=== PATIENT | male | born 1995 | race African-American/Black ===

== ENCOUNTER 2021-09-16 11:19 | Emergency (ER) | payer OTHER, SELFPAY ==
[2021-09-16 11:42] VITALS: BP 138/72; PULSE 76; RESP 18; TEMP 36.8; O2SAT 100
--- NOTE | 2021-09-16 12:12 | ED.EYEPROB ---
HPI - Eye Problem General Chief complaint: Eye Problems Stated complaint: eye pain Time Seen by Provider: 09/16/21 11:49 Source: patient Mode of arrival: ambulatory Limitations: no limitations History of Present Illness HPI Narrative: This is a 26-year-old male that presents to the emergency department for left eye irritation ongoing since yesterday. Reports he woke up and felt like there was a foreign body in his eye. He has had redness, tearing and discomfort. No injuries to the eye. Denies fever, abnormal drainage, or visual changes. Related Data Allergies Allergy/AdvReac Type Severity Reaction Status Date / Time No Known Allergies Allergy Verified 09/16/21 12:13 Review of Systems Review of Systems: CONSTITUTIONAL: Denies fever EYES: Reports redness. Denies visual changes, or discharge. All systems reviewed & are unremarkable except as noted in HPI and below PMFSH Past Medical History Medical History (Updated 09/16/21 @ 12:17 by Deborah Serrato PA-C) No active medical problems Social History Social History (Updated 09/16/21 @ 12:13 by Deborah Serrato PA-C) Smoking status: Never smoker Exam Narrative: GENERAL: Well-appearing, well-nourished, and in no acute distress. HEAD: Normocephalic, atraumatic. EYES: PERRLA and EOMI. Eyelid everted, no foreign bodies noted. Small corneal abrasion present in the left eye with positive fluorescein stain uptake. Eye pressure on the right 14. On the left 13. Visual acuity on the right 20/25, 20/30 on the left EXTREMITIES: Normal range of motion. No edema. SKIN: Warm, dry, no rash. NEURO: No focal deficits. Alert and oriented x3. PSYCH: Normal mood and affect Course Vital Signs Vital signs: Vital Signs Temperature 98.2 F 09/16/21 11:42 Pulse Rate 76 09/16/21 11:42 Respiratory Rate 18 09/16/21 11:42 Blood Pressure 138/72 09/16/21 11:42 Pulse Oximetry 100 09/16/21 11:42 Oxygen Delivery Room Air 09/16/21 11:42 Temperature 98.2 F 09/16/21 11:42 Pulse Rate 76 09/16/21 11:42 Respiratory Rate 18 09/16/21 11:42 Blood Pressure 138/72 09/16/21 11:42 Pulse Oximetry 100 09/16/21 11:42 Oxygen Delivery Room Air 09/16/21 11:42 MDM - Eye Problem MDM Narrative Medical decision making narrative: Patient presents to the emergency department for feelings of foreign body in the eye. No recent injury or trauma. Conjunctival injection and tearing noted to the eye. There is a very small corneal abrasion noted. Visual acuity is normal. Eye pressures are also normal. Instructed on continued care of corneal abrasion. Will be started on ophthalmic antibiotic ointment. He is to follow-up with an locomotive operator helper. He was given warnings to return to the ER Critical Care Time Critical Care Time Critical Care Time: No Discharge Plan Discharge Clinical Impression: Corneal abrasion Qualifiers: Encounter type: initial encounter Laterality: left Qualified Code(s): S05.02XA - Injury of conjunctiva and corneal abrasion without foreign body, left eye, initial encounter Patient Disposition: Home, Self-Care Condition: Stable Instructions: Antibiotic Form, Corneal Abrasion (ED) Additional Instructions: Return to the emergency department if you experience fever, redness and swelling around your eye, visual changes, or any other symptoms that are concerning to you Instill 1 cm ribbon into the left eye 4 times daily for the next 5 days Follow-up with an locomotive operator helper. [facility] if needed Follow-up/Referrals: UNKNOWN,DOCTOR [Primary Care Provider] -
[2021-09-16] MEDS: ERYTHROMYCIN OPHTH OINTMENT 1 GM TUBE 1 APPLIC LEFT EYE (12:25)
== END 2021-09-16 12:35 | disposition home or self-care (01) ==
PROVIDERS: Emergency Provider Emergency Medicine
DX: S05.02XA Injury of conjunctiva and corneal abrasion without foreign body, left eye, initial encounter (principal); X58.XXXA Exposure to other specified factors, initial encounter
CPT/HCPCS: 99283; A9270

== ENCOUNTER 2022-05-31 19:45 | Emergency (ER) | payer OTHER, SELFPAY ==
[2022-05-31 19:48] VITALS: BP 114/64; PULSE 64; RESP 16; TEMP 37.1; O2SAT 100
[2022-05-31 19:57] LABS: Basophils Percent Auto 0.4 % (0.2-1.2); Eosinophils Absolute Auto 0.4 K/mm3 (0-0.3); Eosinophils Percent Auto 3.9 % (0-4.4); Hematocrit 40.6 % (42.0-52.0); Hemoglobin 13.6 g/dL (14.0-18.0); Immature Granulocyte Absolute 0.04 K/mm3 (0.00-0.031); Immature Granulocyte Percent A 0.4 % (0-0.5); Lymphocytes Absolute Auto 2.24 K/mm3 (0.9-3.2); Lymphocytes Percent Auto 21.2 % (18.3-44.2); Mean Corpuscular HGB Conc 33.5 g/dl (32-36); Mean Corpuscular Hemoglobin 33.1 pg (26-34); Mean Corpuscular Volume 98.8 fl (80-100); Mean Platelet Volume 9.5 fl (7.4-10.4); Monocytes Absolute Auto 0.7 K/mm3 (0.1-0.6); Monocytes Percent Auto 6.3 % (2.6-8.5); Neutrophils Absolute Auto 7.2 K/mm3 (1.3-6.7); Neutrophils Percent Auto 67.8 % (45.5-73.1); Platelet Count Result 244 k/mm3 (150-375); Red Blood Count 4.11 M/mm3 (4.6-6.20); White Blood Count 10.6 K/mm3 (4.5-10.0)
[2022-05-31 20:06] LABS: Alanine Aminotransferase 18 U/L (6-50); Albumin Level 4.2 g/dL (3.5-5.1); Alkaline Phosphatase 84 U/L (38-126); Anion Gap 5 mmol/L (8-16); Aspartate Amino Transferase 27 U/L (17-59); Bilirubin,Total 0.4 mg/dL (0.2-1.3); Blood Urea Nitrogen 5 mg/dL (9-20); Calcium 8.8 mg/dL (8.4-10.2); Carbon Dioxide 29 mmol/L (22-30); Chloride 105 mmol/L (98-107); Estimated CRCL calculation 110 ml/min; Estimated Glomerular Filt Rate > 60; Glucose 124 mg/dL (65-110); Lipase 70 U/L (23-300); Potassium 3.7 mmol/L (3.4-5.0); Sodium 139 mmol/L (137-145)
[2022-05-31 21:25] VITALS: BP 135/74; PULSE 61; RESP 18; TEMP 36.8; O2SAT 100
--- NOTE | 2022-05-31 22:23 | PC.NURSE ---
Patient refusing that he does not want to have a straight catheter for urine. Patient was then shown to the bathroom where he was going to try to urinate.
[2022-05-31 23:12] VITALS: BP 127/80; PULSE 61; RESP 15; O2SAT 100
--- NOTE | 2022-05-31 23:23 | ED.GENADULT ---
HPI - General Adult General Chief complaint: Abdominal Pain Stated complaint: abd pain History of Present Illness HPI narrative: This is a 27-year-old male presenting ED with a chief complaint of abdominal pain. Patient says on Tuesday started have a squeezing pain in the middle of his stomach. It lasted throughout most of the day. It was 7/10 intensity and constant although would fluctuate in intensity. He has never experienced pain like this before there are no exacerbating alleviating factors. It was associated with constipation and some trouble initiating his urine stream. patient's last bowel movement was earlier today. It was more loose. He does have history of chronic constipation patient denies dysuria, urinary urgency or frequency. He denies testicle pain or perineal pain. Denies fever chills nausea vomiting diarrhea. The patient's pain has resolved since he arrived here and he is currently pain-free. patient states he had multiple kidney surgeries as a child but does not know what they were appear Related Data Allergies Allergy/AdvReac Type Severity Reaction Status Date / Time No Known Allergies Allergy Verified 09/16/21 12:13 [facility] Past Medical History Medical History No active medical problems Social History Social History Smoking status: Never smoker Exam Narrative: APPEARANCE: No apparent distress. Head: atraumatic. EYES: EOMI, NOSE: Atraumatic NECK: Trachea midline RESPIRATORY: No increased rate of breathing CARDIOVASCULAR: RRR, ABDOMINAL: Soft, nontender no guarding or rebound. No CVA tenderness. Testicle exam revealed normal appearing nontender testicles. MUSCULOSKELETAl: No obvious deformities NEURO: Alert. Moving 4/4 extremities SKIN:: Warm, dry. Normal color PSYCHIATRIC: Normal affect Course Vital Signs Vital signs: Vital Signs Temperature 98.8 F 05/31/22 19:48 Pulse Rate 64 05/31/22 19:48 Respiratory Rate 16 05/31/22 19:48 Blood Pressure 114/64 05/31/22 19:48 Pulse Oximetry 100 05/31/22 19:48 Oxygen Delivery Room Air 05/31/22 19:48 Temperature 98.3 F 05/31/22 21:25 Pulse Rate 61 05/31/22 23:12 Respiratory Rate 15 05/31/22 23:12 Blood Pressure 127/80 05/31/22 23:12 Pulse Oximetry 100 05/31/22 23:12 Oxygen Delivery Room Air 05/31/22 19:48 Medical Decision Making [facility] Narrative Medical decision making narrative: -Presentation: 27-year-old male presenting with abdominal pain associated with constipation and some difficulty urinating. His symptoms have resolved since being in the ED. vital signs are stable abdominal exam is benign. -DDX includes but is not limited to: Constipation, UTI, STD -Co-morbidities complicating care: History of unknown bladder and kidney surgery. History of STDs, history of constipation -Social determinants of health: patient works in a [employer]. Lives with his girlfriend's mom. -External Chart Review: None -Hx from independent Sources: none -Discussion of Management/Consultants: none -Independent interpretation of studies: CBC and metabolic panel were within normal limits. urinalysis was not indicative of infection. Dx tests considered but not ordered: patient refused straight catheterization. -Procedures: none -Interventions: None -Shared decision making / Disposition: Upon re-evaluation patient states that all of his symptoms have resolved. His vital signs are stable, his abdominal exam is benign. Patient will be discharged with return precautions. Patient will be started on stool softeners. -RX Docusate/senna Vital Signs Vital Signs: Vital Signs Temperature 98.8 F 05/31/22 19:48 Pulse Rate 64 05/31/22 19:48 Respiratory Rate 16 05/31/22 19:48 Blood Pressure 114/64 05/31/22 19:48 Pulse Oximetry 100 05/31/22 19:48 Oxygen Deliv
[2022-05-31 23:27] LABS: Appearance Urine Clear (Clear); Bilirubin Urine Negative (Negative); Blood Urine Negative (Negative); Color Urine Yellow (Yellow); Glucose Urine UA Negative (Negative); Ketones Urine Trace mg/dL (Negative); Leukocyte Esterase Ur Negative LEU/UL (Negative); Nitrate Urine Negative (Negative); Protein Urine Negative (Negative); Specific Grav Ur 1.025 (1.001-1.035)
[2022-05-31 23:50] LABS: Add Urine Microscopic? NO
[2022-06-01 00:06] VITALS: BP 117/73; PULSE 68; RESP 18; TEMP 36.7; O2SAT 95
--- NOTE | 2022-06-01 00:06 | PC.NURSE ---
Patient stated he was ready to be discharged. Notified Dr. Yap and per Dr. Yap patient ok to be discharged if urine comes back clean.
== END 2022-06-01 00:08 | disposition home or self-care (01) ==
PROVIDERS: Emergency Provider Emergency Medicine
DX: R10.9 Unspecified abdominal pain (principal)
CPT/HCPCS: 36415; 80053; 81003; 83690; 85025; 99283